=== PATIENT | male | born 1945 | race Caucasian/White ===

== ENCOUNTER → 2020-10-15 | Outpatient (CLI) | payer OTHER ==
--- NOTE | 2020-10-20 00:03 | PF ---
[address] [address] PULMONARY FUNCTION REPORT Name: CORAL GLORIA Room: [facility]#: [id number] Admission: 10/15/20 Attend Phys: Marcelino Leggett MD Discharge: Date of : 43 Report #: [id number] THIS REPORT FOR: cc: Kolton Leal MD, Dean L. MD ~ Marcelino Leggett MD DATE OF SERVICE: 10/15/2020 The FEV1/FVC ratio is decreased to 61% with an FVC normal at 90% and FEV1 decreased to 76%. The MXA26-45 is also decreased to 43%. After the administration of a bronchodilator, there is no significant change in any of these values. The patient's post-bronchodilator FEV1 is noted to be 1.96 liters. The flow volume loop is concave upwards. The total lung capacity is normal at 89% with a residual volume normal at 93%. The DLCO as adjusted for hemoglobin is normal at 84%. IMPRESSION: 1. Moderate obstruction without evidence of reversibility. 2. Normal lung volumes. 3. Normal DLCO. <ELECTRONICALLY SIGNED> By: Marcelino Leggett MD 10/20/20 [id number] Leggett MD /nt
== END ==
LOC: M.PUL 09:41
PROVIDERS: ATTEND Internal Medicine Critical Care Medicine
DX: J44.9 Chronic obstructive pulmonary disease, unspecified (principal)

== ENCOUNTER → 2020-10-20 | Outpatient (CLI) | payer OTHER | LOC: M.SLEEPLAB 20:33 | PROVIDERS: ATTEND Internal Medicine Critical Care Medicine | DX: G47.33 Obstructive sleep apnea (adult) (pediatric) (principal) ==

== ENCOUNTER → 2020-12-10 | Outpatient (CLI) | payer OTHER | LOC: M.SLEEPLAB 20:55 | PROVIDERS: ATTEND Internal Medicine Critical Care Medicine | DX: G47.33 Obstructive sleep apnea (adult) (pediatric) (principal) ==